=== PATIENT | female | born 1945 | race Caucasian/White ===

== ENCOUNTER 2016-12-11 14:53 | Emergency (ER) | payer MEDICARE, OTHER ==
[~2016-12-11] VITALS: Ht 160 cm; Wt 97.5 kg
[~2016-12-11 14:53] MED LIST: AMOXICILLIN500 MG PO; ATENOLOL50 MG PO; BENICAR20 MG PO; BENICAR40 MG PO; FLUOXETINE HCL20 MG PO; FLUOXETINE HCL40 MG PO; GLUCOSAMINE-CH1 EA22 PO; HYDROCHLOROTH12.5 M1 PO; HYDROMORPHONE HC4 MG PO; KEFLEX250 MG PO; LIPITOR20 MG PO; LORATADINE10 MG PO; MIRALAX17 GM PO; MULTIVITAMINS1 EAC8 PO; NIZORAL120 ML TOP; NORCO 5-325 TA1 EACH PO; OXYCODONE HCL5 MG PO; PROBENECID500 MG PO; SUDOGEST30 MG PO; SUDOGEST60 MG PO; TRAZODONE HCL100 MG PO; TYLENOL325 MG PO; VITAMIN C1000 M2 PO; XARELTO10 MG PO
[2016-12-11] MEDS ORDERED: AMLODIPINE BESYL5 MG PO (15:08)
--- NOTE | 2016-12-11 18:38 | EKG ---
[facility] [address] [facility] [address] [place] [address] Signed Sinus bradycardia Otherwise normal ECG No previous ECGs available Confirmed by BRITTANY MENA MD ([id number]) on 12/11/2016 6:38:20 PM Electronically Signed By: BRITTANY MENA MD 12/11/16 1838 PATIENT NAME: RICKEY DALLAS Electrocardiogram DATE OF : 49 PHYSICIAN: BRITTANY MENA MD REPORT #: [id number] REPORT IS CONFIDENTIAL AND NOT TO BE RELEASED WITHOUT AUTHORIZATION
== END 2016-12-11 18:29 | disposition home or self-care (01) ==
LOC: ED 14:53
DX: R07.89 Other chest pain (principal); E78.00 Pure hypercholesterolemia, unspecified; F32.9 Major depressive disorder, single episode, unspecified; E03.9 Hypothyroidism, unspecified; Z88.2 Allergy status to sulfonamides; Z88.1 Allergy status to other antibiotic agents; Z88.8 Allergy status to other drugs, medicaments and biological substances; Z90.710 Acquired absence of both cervix and uterus; Z90.81 Acquired absence of spleen; Z96.652 Presence of left artificial knee joint; Z98.890 Other specified postprocedural states; Z88.5 Allergy status to narcotic agent; Z79.899 Other long term (current) drug therapy
CPT/HCPCS: 36415; 71010; 80053; 83735; 84484; 85025; 85379; 85610; 85730; 93005; 93010; 99284

== ENCOUNTER 2018-03-31 21:35 | Emergency (ER) | payer MEDICARE, OTHER ==
[~2018-03-31] VITALS: Ht 160 cm; Wt 97.5 kg
[~2018-03-31 21:35] MED LIST changes: +AMLODIPINE BESYL5 MG PO; +NORCO 7.5-3251 EACH PO
--- OUTSIDE RECORDS SUMMARY | 2018-03-31 21:40 | XMS ---
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 Genna VISIT COUNT (12 [address] 2 [facility] TOTAL 2 NOTE: Visits indicate total known visits. ED/UCC VISIT TRACKING (12 MO.) 03/31/2018 21:35 [facility] [place] TYPE: Emergency COMPLAINT: - BLOOD IN STOOL 03/05/2018 11:43 [facility] [place] TYPE: Emergency COMPLAINT: - POST OP PROBLEM DIAGNOSES: - Personal history of nicotine dependence - Allergy status to other antibiotic agents status - Major depressive disorder, single episode, unspecified - Other residential (current) drug therapy - Pure hypercholesterolemia, unspecified - Acquired absence of both cervix and uterus - Acquired absence of spleen - Other acute postprocedural pain - Allergy status to sulfonamides status - Presence of left artificial knee joint - Hypothyroidism, unspecified - Allergy status to narcotic agent status - Allergy status to other drugs, medicaments and biological substances status - Postprocedural seroma of skin and subcutaneous tissue following a dermatologic procedure INPATIENT VISIT TRACKING (12 MO.) No inpatient visits to display in this time frame [id number]
== END 2018-04-01 00:58 | disposition home or self-care (01) ==
LOC: ED 21:35
DX: K62.5 Hemorrhage of anus and rectum (principal); E03.9 Hypothyroidism, unspecified; E78.00 Pure hypercholesterolemia, unspecified; F32.9 Major depressive disorder, single episode, unspecified; Z87.891 Personal history of nicotine dependence; Z88.2 Allergy status to sulfonamides; Z88.5 Allergy status to narcotic agent; Z88.1 Allergy status to other antibiotic agents; Z88.8 Allergy status to other drugs, medicaments and biological substances; Z79.899 Other long term (current) drug therapy
CPT/HCPCS: 80053; 81001; 83690; 85025; 85610; 85730; 99283

== ENCOUNTER 2018-07-17 17:15 | Emergency (ER) | payer MEDICARE, OTHER ==
[~2018-07-17] VITALS: Ht 160 cm; Wt 97.5 kg
--- OUTSIDE RECORDS SUMMARY | ~2018-07-17 | XMS | Clinical Summary ---
Demographics + + + | Address | [address] | | | [place] [address] | + + + | Home Phone | | + + + | Preferred Language | Unknown | + + + | Marital Status | | + + + | Taoist Affiliation | CAT | + + + | Race | White | + + + | Ethnic Group | Not or | + + + Author + + + | Author | [facility] | + + + | Organization | [facility] | + + + | Address | Unknown | + + + | Phone | Unavailable | + + + Support + + + + + | Name | Relationship | Address | Phone | + + + + + | CORIE CARTWRIGHT | ECON | [address] | | | | | [place], [place] | | | | | [address] | | + + + + + Care Team Providers + +------+ + | Care Templer Head Name | Role | Phone | + +------+ + | Donavon Mark MD | PP | | + +------+ + Source Comments LEANDRO is fully live on both [facility] Ambulatory and [facility] InPatient.[facility] Allergies + + + + + + | Active Allergy | Reactions | Severity | Noted | Comments | | | | | Date | | + + + + + + | Codeine | Nausea | Medium | 07/07/18 | Dry heaves | | | | | 92 | | + + + + + + | Lisinopril | Cough | Low | 08/29/19 | | | | | | 12 | | + + + + + + | Sulfa (Sulfonamide | Unknown | | 02/21/20 | | | Antibiotics) | | | 18 | | + + + + + + Current Medications + + +--------+---------+------+------+-------+ | Prescription | Sig. | Disp. | Refills | Star | End | Statu | | | | | | t | Date | s | | | | | | Date | | | + + +--------+---------+------+------+-------+ | Olmesartan | 1 tablet daily | | | | | Activ | | Medoxomil (BENICAR) | | | | | | e | | 40 mg Oral Tablet | | | | | | | + + +--------+---------+------+------+-------+ | Pseudoephedrine | Take by mouth as | | | | | Activ | | HCl (SUDOGEST) 30 mg | needed. | | | | | e | | Oral Tablet | | | | | | | + + +--------+---------+------+------+-------+ | FLUoxetine 20 mg | Take 40 mg by mouth | | | | | Activ | | Oral Tablet | once daily. | | | | | e | + + +--------+---------+------+------+-------+ | acetaminophen 500 | Take 2 Tabs by mouth | | | 07/1 | | Activ | | mg Oral Tablet | every eight hours | | | 5/20 | | e | | | as needed. | | | 12 | | | + + +--------+---------+------+------+-------+ | MULTIVIT | Take 1 tablet by | | | | | Activ | | &MINERALS/FERROUS | mouth once daily. | | | | | e | | FUM (MULTI VITAMIN | | | | | | | | ORAL) | | | | | | | + + +--------+---------+------+------+-------+ | amoxicillin 500 mg | Take 500 mg by mouth | | | | | Activ | | Oral capsule | as needed. | | | | | e | + + +--------+---------+------+------+-------+ | amLODIPine 10 mg | Take 10 mg by mouth | | | | | Activ | | oral tablet | once daily at | | | | | e | | | bedtime. | | | | | | + + +--------+---------+------+------+-------+ | atorvastatin 20 mg | Take 20 mg by mouth | | | | | Activ | | oral tablet | once daily. | | | | | e | + + +--------+---------+------+------+-------+ | CALCIUM | Take 1 tablet by | | | | | Activ | | CITRATE-VITAMIN D3 | mouth once daily. | | | | | e | | ORAL | | | | | | | + + +--------+---------+------+------+-------+ | oxyCODONE | Take 1-2 tablets by | 20 | 0 | 12/1 | | Activ | | (immediate release) | mouth every four | tablet | | 4/20 | | e | | 5 mg oral tablet | hours as needed for | | | 18 | | | | | moderate pain. | | | | | | + + +--------+---------+------+------+-------+ | ondansetron ODT | Dissolve 1 tablet on | 20 | 0 | 12/1 | | Activ | | (ZOFRAN ODT) 4 mg | tongue and swallow | tablet | | 4/20 | | e | | oral | every twelve hours | | | 18 | | | | tablet,disintegratin | as needed. | | | | | | | gIndications: | Indications: | | | | | | | Prevent Nausea and | Prevention of | | | | | | | Vomiting After | Post-Operative | | | | | | | Surgery | Nausea and Vomiting | | | | | | + + +--------+---------+------+------+-------+ | | Take 1 tablet by | 50 | 0 | 12/2 | | Activ | | HYDROcodone-acetamin | mouth every four | tablet | | 4/20 | | e | | ophen 7.5-325 mg | hours as needed. | | | 18 | | | | oral tablet | | | | | | | + + +--------+---------+------+------+-------+ | | Take 25 mg by mouth | | | | | Activ | | hydroCHLOROthiazide | once daily. | | | | | e | | 25 mg oral tablet | | | | | | | + + +--------+---------+------+------+-------+ Active Problems + + + | Problem | Noted Date | + + + | Groin pain, left | 12/19/2017 | + + + | HTN (hypertension) | 11/06/2017 | + + + | Groin pain, right | 10/29/2017 | + + + | Thoracic aortic aneurysm (HCC) | 08/29/2011 | + + + Immunizations + + + + | Name | Dates Previously Given | Next Due | + + + + | Influenza, high dose | 12/18/2016, 02/07/2016, 12/19/2013 | | | seasonal, | | | | preservative-free | | | + + + + | Influenza, seasonal, | 12/31/2012 | | | injectable, | | | | preservative free | | | | (IIV3) | | | + + + + | [id number], | 02/26/2009 | | | injectable | | | + + + + | MCV4P | 02/26/2017 | | + + + + | PCV13 | 02/07/2016 | | + + + + | Pneumococcal 23 | 10/08/2017 | | + + + + Family History + + +------+ + | Medical History | Relation | Name | Comments | + + +------+ + | Aneurysm | Other | | | + + +------+ + | Diabetes | Other | | | + + +------+ + | Seizures | Other | | Epilepsy | + + +------+ + + +------+--------+ + | Relation | Name | Status | Comments | + +------+--------+ + | Other | | | | + +------+--------+ + Social History + + + +--------+ + | Tobacco Use | Types | Packs/Day | Years | Date | | | | | Used | | + + + +--------+ + | Former Smoker | Cigarettes | 1 | 40 | Quit: 11/2007 | + + + +--------+ + + +---+---+---+ | Smokeless Tobacco: | | | | | Never Used | | | | + +---+---+---+ + + +---------+ + | Alcohol Use | Drinks/We | oz/Week | Comments | | | ek | | | + + +---------+ + | Yes | 1-3 | 0.6 - | 3 x year (location dependent [place] | | | Standard | 1.8 | | | | drinks or | | | | | | | | | | equivalen | | | | | t | | | + + +---------+ + + + + | Sex Assigned at | Date Recorded | | | | + + + | Not on file | | + + + Last Filed Vital Signs + + + + | Vital Sign | Reading | Time Taken | + + + + | Blood Pressure | 116/61 | 03/20/2018 1:23 PM PST | + + + + | Pulse | 70 | 03/20/2018 1:23 PM PST | + + + + | Temperature | 36.6 C (97.9 F) | 02/21/2018 3:15 PM PST | + + + + | Respiratory Rate | 15 | 02/21/2018 3:15 PM PST | + + + + | Oxygen Saturation | 93% | 02/21/2018 3:15 PM PST | + + + + | Inhaled Oxygen | - | - | | Concentration | | | + + + + | Weight | 98.7 kg (217 lb 9.6 | 03/20/2018 1:23 PM PST | | | oz) | | + + + + | Height | 160 cm (5' 3") | 03/20/2018 1:23 PM PST | + + + + | Body Mass Index | 38.55 | 03/20/2018 1:23 PM PST | + + + + Plan of Treatment + + + + + | Health Maintenance | Due Date | Last Done | Comments | + + + + + | Pneumococcal (Adult) | Completed | 10/08/2017, 02/07/2016 | | + + + + + | Influenza (Flu) | Completed | 01/10/2018, 12/18/2016, | | | vaccination | | 02/07/2016, Additional history | | | | | exists | | + + + + + Implants + +------+--------+ +--------+--------+--------+ | Implanted | Type | Area | Manufacture | Device | Expira | Model | | | | | r | | tion | / | | | | | | Identi | Date | Serial | | | | | | fier | | / Lot | + +------+--------+ +--------+--------+--------+ | Gridley Tag Thoracic | | Right: | | | 10/08/ | [id number] | | EndoprosthesisImplanted: Qty: | | Other | | | 2013 | 610 / | | 1 on 09/19/2011 by Florentino, | | | | | | /[id number] | | MD Donovan | | | | | | 54 | + +------+--------+ +--------+--------+--------+ Results Not on filefrom Last 3 Months Insurance + +--------+ +--------+ + + | Payer | Benefi | Subscriber | Type | Phone | Address | | | t Plan | ID | | | | | | / | | | | | | | Group | | | | | + +--------+ +--------+ + + | MEDICARE | MEDICA | xxxxxxxxxxx | Medica | +- | [address] | | | RE A & | | re | [phone] | [place] [address] | | | B | | | | | + +--------+ +--------+ + + | [employer]ANS[employer]ERICA | TRANSA | xxxxxxxxx | POS | [phone] [address] [place] | | MEDICARE SUPPLEMENT | [place] | | | [phone] | [place] [address] | | | | | | | | | | MEDICA | | | | | | | RE | | | | | | | SUPPLE | | | | | | | MENT | | | | | + +--------+ +--------+ + + + +--------+ +--------+ + + | Guarantor Name | Accoun | Relation to | Date | Phone | Billing Address | | | t Type | Patient | of | | | | | | | | | | + +--------+ +--------+ + + | AFSANEH CARTWRIGHT | Person | Self [birth year] | Home: | | | | al/Fam | | 1946 | [phone] | [place] [address] | | | [place] | | | [phone] | | + +--------+ +--------+ + +
--- OUTSIDE RECORDS SUMMARY | ~2018-07-17 | XMS | Clinical Summary ---
Demographics + + + | Address | [address] | | | [place] [address] | + + + | Home Phone | | + + + | Preferred Language | Unknown | + + + | Marital Status | | + + + | Restoration Affiliation | 1041 | + + + | Race | Unknown | + + + | Ethnic Group | Unknown | + + + Author + + + | Author | [facility] | | | and [place] | + + + | Organization | [facility] | | | and [place] | + + + | Address | Unknown | + + + | Phone | Unavailable | + + + Support + + +---------+ + | Name | Relationship | Address | Phone | + + +---------+ + | Chay,Josh | ECON | Unknown | | + + +---------+ + Care Team Providers + +------+ + | Care Ward Assistant Name | Role | Phone | + +------+ + | Donavon Mark MD | PP | | + +------+ + Allergies + + + + + + | Active Allergy | Reactions | Severity | Noted | Comments | | | | | Date | | + + + + + + | Codeine | | Medium | 07/07/18 | Dry jayla | | | | | 92 | | + + + + + + | Lisinopril | Other (See Comments) | Medium | 08/29/19 | Cough | | | | | 12 | | + + + + + + | Sulfa Antibiotics | | | 05/31/19 | Cannot remember | | | | | 18 | why, was told not to | | | | | | use any more | + + + + + + Medications + + + +---------+------+------+-------+ | Medication | Sig | Dispensed | Refills | Star | End | Statu | | | | | | t | Date | s | | | | | | Date | | | + + + +---------+------+------+-------+ | olmesartan | Take 40 mg by mouth | | 0 | | | Activ | | (BENICAR) 40 MG | Daily. | | | | | e | | tablet | | | | | | | + + + +---------+------+------+-------+ | Pseudoephedrine | Take 3 g by mouth as | | 0 | | | Activ | | HCl (SUDOGEST PO) | needed. Prn cold | | | | | e | + + + +---------+------+------+-------+ | amoxicillin | Take 500 mg by mouth | | 0 | | | Activ | | (AMOXIL) 500 MG | as needed. | | | | | e | | capsule | | | | | | | + + + +---------+------+------+-------+ | atorvaSTATin | Take 20 mg by mouth | | 0 | | | Activ | | (LIPITOR) 20 mg | nightly. | | | | | e | | tablet | | | | | | | + + + +---------+------+------+-------+ | amLODIPine | Take 10 mg by mouth | | 0 | | | Activ | | (NORVASC) 10 MG | Daily. | | | | | e | | tablet | | | | | | | + + + +---------+------+------+-------+ | Multiple | Take by mouth Daily | | 0 | | | Activ | | Vitamins-Minerals | as needed. | | | | | e | | (HAIR SKIN AND NAILS | | | | | | | | FORMULA PO) | | | | | | | + + + +---------+------+------+-------+ | Misc Natural | Take 1 tablet by | | 0 | | | Activ | | Products (APPLE | mouth 2 times daily. | | | | | e | | CIDER VINEGAR DIET | | | | | | | | PO) | | | | | | | + + + +---------+------+------+-------+ | Calcium | Take 1 tablet by | | 0 | | | Activ | | Carbonate-Vitamin D | mouth. | | | | | e | | (CALCIUM 500 + D) | | | | | | | | 500-125 MG-UNIT TABS | | | | | | | + + + +---------+------+------+-------+ | FLUoxetine | Daily. | | 0 | 06/0 | | Activ | | (PROZAC) 40 MG | | | | 7/20 | | e | | capsule | | | | 18 | | | + + + +---------+------+------+-------+ | | Take 25 mg by mouth | | 0 | 06/1 | | Activ | | hydroCHLOROthiazide | Daily. | | | 8/20 | | e | | 25 mg tablet | | | | 18 | | | + + + +---------+------+------+-------+ Active Problems + + + | Problem | Noted Date | + + + | Thoracic aortic aneurysm | 07/23/2017 | + + + | Coronary artery disease involving [place] coronary artery of | 07/23/2017 | | [place] heart without angina pectoris | | + + + | Essential hypertension | 07/23/2017 | + + + | Neuropathy | | + + + Family History + + +------+ + | Medical History | Relation | Name | Comments | + + +------+ + | Alcohol abuse | Brother | | | + + +------+ + | Alcohol abuse | Brother | | | + + +------+ + | Seizures | Daughter | | | + + +------+ + | Stroke | Father | | CVA and cerebral hemmorrage | + + +------+ + | Stroke | Mother | | | + + +------+ + | Aneurysm | Other | | Brother, had 4 aneurysm repairs. | + + +------+ + | Diabetes | Sister | | | + + +------+ + + +------+ + + | Relation | Name | Status | Comments | + +------+ + + | Brother | | | | + +------+ + + | Brother | | | | + +------+ + + | Daughter | | | | + +------+ + + | Father | | | | | | | (Age | | | | | 51) | | + +------+ + + | Mother | | | | | | | (Age | | | | | 76) | | + +------+ + + | Other | | | | + +------+ + + | Sister | | | | + +------+ + + Social History + + + +--------+ + | Tobacco Use | Types | Packs/Day | Years | Date | | | | | Used | | + + + +--------+ + | Former Smoker | Cigarettes | 1 | 40 | Quit: 03/19/2008 | + + + +--------+ + + +---+---+---+ | Smokeless Tobacco: | | | | | Never Used | | | | + +---+---+---+ + + +---------+ + | Alcohol Use | Drinks/We | oz/Week | Comments | | | ek | | | + + +---------+ + | Yes | 1 Cans | 0.6 | Moderately | | | of beer | | | + + +---------+ + + + + | Sex Assigned at | Date Recorded | | | | + + + | Not on file | | + + + + + + + | Job Start Date | Occupation | Industry | + + + + | Not on file | Not on file | Not on file | + + + + + + + + | Travel History | Travel Start | Travel End | + + + + + + | No recent travel history available. | + + Last Filed Vital Signs + + + + | Vital Sign | Reading | Time Taken | + + + + | Blood Pressure | 126/58 | 09/02/20171106 PDT | + + + + | Pulse | 70 | 09/02/20171106 PDT | + + + + | Temperature | 35.6 C (96 F) | 09/02/20171106 PDT | + + + + | Respiratory Rate | 18 | 04/28/2015 0836 PST | + + + + | Oxygen Saturation | 97% | 05/25/2013 1025 PDT | + + + + | Inhaled Oxygen | - | - | | Concentration | | | + + + + | Weight | 98.4 kg (216 lb 14.4 | 09/02/20171106 PDT | | | oz) | | + + + + | Height | 160 cm (5' 3") | 09/02/20171106 PDT | + + + + | Body Mass Index | 38.42 | 09/02/20171106 PDT | + + + + Plan of Treatment + + + + + | Health Maintenance | Due Date | Last Done | Comments | + + + + + | Hepatitis C | | | | | Screening | 8 | | | + + + + + | Vaccine: | | | | | Dtap/Tdap/Td (1 - | 7 | | | | Tdap) | | | | + + + + + | Breast Cancer | | | | | Screening (Ages | 8 | | | | 50-74) | | | | + + + + + | Colorectal Cancer | | | | | Screening | 8 | | | | (Colonoscopy) | | | | + + + + + | Vaccine: Zoster (1 | | | | | of 2) | 8 | | | + + + + + | Lung Cancer | | | | | Screening | 3 | | | + + + + + | Vaccine: | | | | | Pneumococcal 65+ | 3 | | | | Low/Medium Risk (1 | | | | | of 2 - PCV13) | | | | + + + + + | Adult Annual | | | | | Wellness Visit | 5 | | | + + + + + | Statin Therapy | | | | | (optimal intensity) | 5 | | | + + + + + | Vaccine: Influenza | | | | | (Season Ended) | 9 | | | + + + + + Results Not on filefrom Last 3 Months Insurance + +--------+ +--------+ +---------+--------+ | Payer | Benefi | Subscriber | Effect | Phone | Address | Type | | | t Plan | ID | leyda | | | | | | / | | Dates | | | | | | Group | | | | | | + +--------+ +--------+ +---------+--------+ | MEDICARE | MEDICA | [id number] | 09/09/19 | [phone] | | Medica | | | RE | | 13-Pre | 5 | | re | | | PART A | | sent | | | | | | AND B | | | | | | + +--------+ +--------+ +---------+--------+ | [employer] | TRANSA | [id number] | | | | Indemn | | INSURANCE | MERICA | | 015-Pr | | | ity | | | LIFE | | esent | | | | | | [place] | | | | | | + +--------+ +--------+ +---------+--------+ + +--------+ +--------+ + + | Guarantor Name | Accoun | Relation to | Date | Phone | Billing Address | | | t Type | Patient | of | | | | | | | | | | + +--------+ +--------+ + + | Afsaneh Cartwright | Person | Self | [birth year] | | | | al/Aubrey | | 1946 | [phone] | [place] | | | [place] | | | 6 (Home) | [address] | | | | | | [phone] | | | | | | | 0 (Work) | | + +--------+ +--------+ + + Advance Directives Patient has advance care planning documents on file. For more information, please contact:[facility] [place] [address]
--- OUTSIDE RECORDS SUMMARY | ~2018-07-17 | XMS | Clinical Summary ---
Demographics + + + | Address | [address] | | | [place] [address] | + + + | Home Phone | | + + + | Preferred Language | Unknown | + + + | Marital Status | | + + + | Buddhist Affiliation | Unknown | + + + | Race | Unknown | + + + | Ethnic Group | Unknown | + + + Author + + + | Author | [facility] | + + + | Organization | [facility] | + + + | Address | Unknown | + + + | Phone | Unavailable | + + + Support + + +---------+ + | Name | Relationship | Address | Phone | + + +---------+ + | Josh Cartwright | ECON | Unknown | | + + +---------+ + Care Team Providers + +------+ + | Care Hoop Punch And Coiler Operator Helper Name | Role | Phone | + +------+ + | Donavon Mark MD | PP | | + +------+ + Allergies + + + + + + | Active Allergy | Reactions | Severity | Noted | Comments | | | | | Date | | + + + + + + | Codeine | GI Distress | Low | /1520 | | | | | | 18 | | + + + + + + | Lisinopril | Cough | Low | 05/15/20 | | | | | | 18 | | + + + + + + | Sulfa Antibiotics | Rash | Medium | 05/15/20 | | | | | | 18 | | + + + + + + Current Medications + + +-------+---------+------+------+-------+ | Prescription | Sig. | Disp. | Refills | Star | End | Statu | | | | | | t | Date | s | | | | | | Date | | | + + +-------+---------+------+------+-------+ | olmesartan | Take 40 mg by mouth | | | | | Activ | | (BENICAR) 40 MG | daily. | | | | | e | | tablet | | | | | | | + + +-------+---------+------+------+-------+ | | Take 25 mg by mouth | | | | | Activ | | hydrochlorothiazide | daily. | | | | | e | | (HYDRODIURIL) 12.5 | | | | | | | | MG tablet | | | | | | | + + +-------+---------+------+------+-------+ | FLUoxetine | Take 40 mg by mouth | | | | | Activ | | (PROZAC) 40 MG | daily. | | | | | e | | capsule | | | | | | | + + +-------+---------+------+------+-------+ | Calcium | Take 1 tablet by | | | | | Activ | | Citrate-Vitamin D | mouth daily. | | | | | e | | (BL CALCIUM CITRATE | | | | | | | | + D PO) | | | | | | | + + +-------+---------+------+------+-------+ | amLODIPine | Take 10 mg by mouth | | | | | Activ | | (NORVASC) 10 MG | daily. | | | | | e | | tablet | | | | | | | + + +-------+---------+------+------+-------+ | atorvastatin | Take 20 mg by mouth | | | | | Activ | | (LIPITOR) 20 MG | nightly. | | | | | e | | tablet | | | | | | | + + +-------+---------+------+------+-------+ | pseudoephedrine | Take 30 mg by mouth | | | | | Activ | | (SUDOGEST) 30 MG | every 6 (six) hours | | | | | e | | tablet | as needed for | | | | | | | | Congestion. | | | | | | + + +-------+---------+------+------+-------+ | BIOTIN PO | Take 1 tablet by | | | | | Activ | | | mouth daily. | | | | | e | + + +-------+---------+------+------+-------+ | APPLE CIDER | Take 2 tablets by | | | | | Activ | | VINEGAR PO | mouth daily. | | | | | e | + + +-------+---------+------+------+-------+ Active Problems + + + | Problem | Noted Date | + + + | Coronary artery disease involving [place] coronary artery of | 07/23/2017 | | [place] heart without angina pectoris | | + + + | Essential hypertension | 07/23/2017 | + + + | Ascending aortic aneurysm (HCC) | 07/23/2017 | + + + Family History + +------+ + + | Relation | Name | Status | Comments | + +------+ + + | Father | | | CVA | | | | (Age | | | | | 51) | | + +------+ + + | Mother | | | IN | | | | (Age | | | | | 76) | | + +------+ + + Social History + +-------+ +--------+------+ | Tobacco Use | Types | Packs/Day | Years | Date | | | | | Used | | + +-------+ +--------+------+ | Former Smoker | | | | | + +-------+ +--------+------+ + +---+---+---+ | Smokeless Tobacco: | | | | | Never Used | | | | + +---+---+---+ + + +---------+ + | Alcohol Use | Drinks/We | oz/Week | Comments | | | ek | | | + + +---------+ + | No | | | | + + +---------+ + + + + | Sex Assigned at | Date Recorded | | | | + + + | Not on file | | + + + Last Filed Vital Signs + + + + | Vital Sign | Reading | Time Taken | + + + + | Blood Pressure | 110/62 | 01/29/2018 1:49 PM PST | + + + + | Pulse | 69 | 01/29/2018 1:49 PM PST | + + + + | Temperature | - | - | + + + + | Respiratory Rate | 20 | 01/29/2018 1:49 PM PST | + + + + | Oxygen Saturation | 93% | 01/29/2018 1:49 PM PST | + + + + | Inhaled Oxygen | - | - | | Concentration | | | + + + + | Weight | 95.7 kg (211 lb) | 01/29/2018 1:49 PM PST | + + + + | Height | 160 cm (5' 3") | 01/29/2018 1:49 PM PST | + + + + | Body Mass Index | 37.38 | 01/29/2018 1:49 PM PST | + + + + Plan of Treatment +--------+---------+ + + + | Date | Type | Specialty | Care Team | Description | +--------+---------+ + + + | 02/04/ | Office | | Bird Thompson, | | | 2019 | Visit | | MD Ian Ashley | | | | | | Dr [address], | | | | | | [place] [address] | | | | | | [phone] | | | | | | | | +--------+---------+ + + + + + + + + | Health Maintenance | Due Date | Last Done | Comments | + + + + + | Vaccine: | | | | | Dtap/Tdap/Td (1 - | 7 | | | | Tdap) | | | | + + + + + | Breast Cancer | | | | | Screening | 8 | | | | (Mammogram) | | | | + + + + + | Colon Cancer | | | | | Screening | 8 | | | | (Colonoscopy) | | | | + + + + + | Vaccine: Zoster (1 | | | | | of 2) | 8 | | | + + + + + | DEXA SCAN SCREENING | | | | | | 3 | | | + + + + + | Statin Therapy | | | | | (optimal intensity) | 7 | | | + + + + + | Vaccine: Influenza | | 12/18/2016, 02/07/2016, | | | (Season Ended) | 9 | 12/19/2013 | | + + + + + | Vaccine: | Completed | 10/08/2017, 02/07/2016 | | | Pneumococcal 65+ | | | | | Low/Medium Risk | | | | + + + + + Results Not on filefrom Last 3 Months Insurance + +--------+ +------+-------+ + | Payer | Benefi | Subscriber | Type | Phone | Address | | | t Plan | ID | | | | | | / | | | | | | | Group | | | | | + +--------+ +------+-------+ + | MEDICARE | MEDICA | [id number] | | | [address] | | | RE | | | | [place] [address] | | | IP-OP | | | | | + +--------+ +------+-------+ + | COMMERCIAL OTHER | TRANSA | [id number] | | | | | | [employer] | | | | | | | LIFE | | | | | + +--------+ +------+-------+ + + +--------+ +--------+ + + | Guarantor Name | Accoun | Relation to | Date | Phone | Billing Address | | | t Type | Patient | of | | | | | | | | | | + +--------+ +--------+ + + | AFSANEH CARTWRIGHT | Person | Self | [birth year] | Work: | | | | al/Aubrey | | 1946 | [phone] | [place] | | | [place] | | | [address]: | [address] | | | | | | | | | | | | | [phone] | | | | | | | [phone] | | + +--------+ +--------+ + +
--- OUTSIDE RECORDS SUMMARY | ~2018-07-17 | XMS | Clinical Summary ---
Demographics + + + | Address | [address] | | | [place] [address] | + + + | Home Phone | | + + + | Preferred Language | Unknown | + + + | Marital Status | | + + + | Holiness Affiliation | 1041 | + + + | Race | Unknown | + + + | Ethnic Group | Unknown | + + + Author + + + | Author | [facility] | | | and [place] | + + + | Organization | Merged With [facility] | | | and [...] Team Providers + +------+ + | Care Tare Man Name | Role | Phone | + [...] + + | Coronary artery disease involving [place] coronary artery of | 07/23/2017 | | [place] heart without angina pectoris | | + [...] +--------+ +---------+--------+ | MEDICARE | MEDICA | [id number] | 09/09/19 | [phone] | | Medica | | | RE | | 13-Pre | 5 | | re | | | PART A | | sent | | | | | | AND B | | | | | | + +--------+ +--------+ +---------+--------+ | [employer] | TRANSA | [id number] | | | | Indemn | | [...] | | al/Aubrey | | 1946 | [phone] | [place] | | | [place] | | | [address] (Home) | [address] | | | | | | [phone] | | | | | | | 0 (Work) | | + +--------+ +--------+ + + Advance Directives Patient has advance care planning documents on file. For more information, please contact:[facility] [place] [address]
--- OUTSIDE RECORDS SUMMARY | ~2018-07-17 | XMS | Clinical Summary ---
Demographics + + + | Address | [address] | | | [place] [address] | + + + | Home Phone | | + + + | Preferred Language | Unknown | + + + | Marital Status | | + + + | Mormonism Affiliation | CAT | + + + [...] [place], [place] | | | | | [address] | | + + + + + Care Team Providers + +------+ + | Care Perishable Fruit Inspector Name | Role | Phone | + +------+ + | Donavon Mark MD | PP | | + +------+ + Source Comments LEANDRO is fully live on both [facility] and [facility] InPatient.[facility] Allergies + + + + + + [...] | | + + + + | [id number], | 02/26/2009 | | | injectable | [...] / Lot | + +------+--------+ +--------+--------+--------+ | Averill Tag Thoracic | | Right: | | | 10/08/ | [id number] | | EndoprosthesisImplanted: Qty: | | Other | | | 2013 | 610 / | | 1 on 09/19/2011 by Florentino, | | | | | | /[id number] | | MD Donovan | | | [...] | Medica | +- | [address] | | | RE A & | | re | [phone] | [place] [address] | | | B | | | | | + +--------+ +--------+ + + | [employer] | TRANSA | [phone] | POS | [phone] | [address] [place] | | MEDICARE SUPPLEMENT | MER[place] | | | [phone] | [place] [address] | | | | | | | [...] | | al/Fam | | 1946 | [phone] | [place] [address] | | | [place] | | | [phone] | | + +--------+ +--------+ + +
--- OUTSIDE RECORDS SUMMARY | ~2018-07-17 | XMS | Clinical Summary ---
Demographics + + + | Address | [address] | | | [place] [address] | + + + | Home Phone | | + + + | Preferred Language | Unknown | + + + | Marital Status | | + + + | Yazidism Affiliation | Unknown | + + + | Race | Unknown | + + + | Ethnic Group | Unknown | + + + Author + + + | Author | [facility] | + + + | Organization | [facility] | + + + | Address | Unknown | + + + | Phone | Unavailable | + + + Support + + +---------+ + | Name | Relationship | Address | Phone | + + +---------+ + | Josh Cartwright | ECON | Unknown | | + + +---------+ + Care Team Providers + +------+ + | Care Architecture Drafter Name | Role | Phone | + [...] + + | Coronary artery disease involving [place] coronary artery of | 07/23/2017 | | [place] heart without angina pectoris | | + [...] + + | Mother | | | [place] | | | | (Age | | [...] | | | | | | [place] [address] | | | | | | [phone] | | | | | | | [...] +------+-------+ + | MEDICARE | MEDICA | [id number] | | | [address] | | | RE | | | | [place] [address] | | | IP-OP | | | | | + +--------+ +------+-------+ + | COMMERCIAL OTHER | TRANSA | [id number] | | | | | | MERICA [...] | | al/Aubrey | | 1946 | [phone] | [place] | | | [place] | | | [address]: | [address] | | | | | | | | | | | | | [phone] | | | | | | | [address] | | + +--------+ +--------+ + +
--- OUTSIDE RECORDS SUMMARY | 2018-07-17 17:18 | XMS ---
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 Care History Medical/Surgical 04/01/2018 [facility] - Patient is currently established with [facility]. If patient is seen in the ED during business hours. Please contact [facility] at [facility]. Care Recommendation: This patient has had 5 or more Emergency Department visits in the last 12 months.\T\nbsp; Patient requires education on the scope and purpose of the ED as an acute care provider not a Primary Care Provider and should not be utilized for chronic conditions.\T\nbsp; These are guidelines and the provider should exercise clinical judgment when providing care. E.D. VISIT COUNT (12 MO.) 3 [facility] TOTAL 3 NOTE: Visits indicate total known visits. ED/UCC VISIT TRACKING (12 MO.) 07/17/2018 17:16 [facility] [place] TYPE: Emergency COMPLAINT: - BILAT LEG SWELLING NON INJURY 03/31/2018 21:35 [facility] [place] TYPE: Emergency COMPLAINT: - BLOOD IN STOOL DIAGNOSES: - Hemorrhage of anus and rectum - Allergy status to sulfonamides status - Melena - Personal history of nicotine dependence - Pure hypercholesterolemia, unspecified - Major depressive disorder, single episode, unspecified - Allergy status to narcotic agent status - Other correction (current) drug therapy - Allergy status to other drugs, medicaments and biological substances status - Hypothyroidism, unspecified - Allergy status to other antibiotic agents status 03/05/2018 11:43 [facility] [place] TYPE: Emergency COMPLAINT: - POST OP PROBLEM DIAGNOSES: - Personal history of nicotine dependence - Allergy status to other antibiotic agents status - Major depressive disorder, single episode, unspecified - Other correction (current) drug therapy - Pure hypercholesterolemia, unspecified [...] visits to display in this time frame [id number]
== END 2018-07-17 19:08 | disposition home or self-care (01) ==
LOC: ED 17:15
DX: R60.0 Localized edema (principal); E78.00 Pure hypercholesterolemia, unspecified; E03.9 Hypothyroidism, unspecified; F17.200 Nicotine dependence, unspecified, uncomplicated; F32.9 Major depressive disorder, single episode, unspecified; Z90.710 Acquired absence of both cervix and uterus; Z88.2 Allergy status to sulfonamides; Z88.1 Allergy status to other antibiotic agents; Z88.5 Allergy status to narcotic agent; Z88.8 Allergy status to other drugs, medicaments and biological substances; Z79.899 Other long term (current) drug therapy
CPT/HCPCS: 96372; 99283-25; J1940

== ENCOUNTER 2020-03-28 19:41 | Emergency (ER) | payer MEDICARE, OTHER ==
[~2020-03-28] VITALS: Ht 160 cm; Wt 102.5 kg
--- OUTSIDE RECORDS SUMMARY | 2020-03-28 20:14 | XMS ---
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 Care History Medical/Surgical 04/01/2018 [facility] - Patient is currently established with [facility]. If patient is seen in the ED during business hours. Please contact [facility] at [facility]. Care Recommendation: This patient has had [...] providing care. E.D. VISIT COUNT (12 MO.) 1 [facility] TOTAL 1 NOTE: Visits indicate total known visits. ED/UCC VISIT TRACKING (12 MO.) 03/28/2020 19:41 [facility] [place] TYPE: Emergency COMPLAINT: - CHEST PAIN INPATIENT VISIT TRACKING (12 MO.) No inpatient visits to display in this time frame [email or web address]
--- NOTE | 2020-03-29 07:27 | EKG ---
[facility] [address] [facility] [place], [place] [address] Signed Normal sinus rhythm Normal ECG When compared with ECG of 11-DEC-2016 14:53, No significant change was found Confirmed by DANN RICKETTS MD ([id number]) on 03/29/2020 7:27:47 AM Electronically Signed By: DANN RICKETTS MD 03/29/20 0727 PATIENT NAME: RICKEY DALLAS Electrocardiogram DATE OF : 49 PHYSICIAN: DANN RICKETTS MD REPORT #: [id number] REPORT IS CONFIDENTIAL AND NOT TO BE RELEASED WITHOUT AUTHORIZATION
== END 2020-03-28 23:45 | disposition home or self-care (01) ==
LOC: ED 19:41
DX: R07.89 Other chest pain (principal); E78.00 Pure hypercholesterolemia, unspecified; E03.9 Hypothyroidism, unspecified; Z87.891 Personal history of nicotine dependence; Z88.8 Allergy status to other drugs, medicaments and biological substances; Z88.2 Allergy status to sulfonamides; Z88.5 Allergy status to narcotic agent; Z88.1 Allergy status to other antibiotic agents; Z79.899 Other long term (current) drug therapy
CPT/HCPCS: 71045; 71260; 80053; 83735; 84484; 85025; 85379; 85610; 85730; 93005; 93010; 99285-25